=== PATIENT | female | born 1990 | race Two or more races ===

== ENCOUNTER 2025-03-22 07:38 | Outpatient (CLI) | payer OTHER ==
[2025-03-22 08:07] LABS: Hematocrit 39.9 % (36.0-46.0); Hemoglobin 13.6 g/dL (12.2-16.2); Mean Corpuscular Hemoglobin 31.9 pg (28.0-32.0); Mean Corpuscular Volume 93.6 fL (80.0-100.0); Nucleated Red Blood Cells % 0.1 %
[2025-03-22 08:35] LABS: Alanine Aminotransferase 17 U/L (7-40); Alkaline Phosphatase 102 U/L (46-116); Anion Gap 9 (5-15); Calcium 8.9 mg/dL (8.7-10.4); Carbon Dioxide 26 mmol/L (20-31); Chloride 106 mmol/L (98-107); Glucose 90 mg/dL (74-106); Potassium 4.4 mmol/L (3.5-5.1); Sodium 141 mmol/L (136-145); Triglycerides 134 mg/dL (< 150)
[2025-03-22 08:36] LABS: Albumin 4.3 g/dL (3.2-4.8); BUN/Creatinine Ratio 9.5 (10.0-20.0); Bilirubin, Total 0.4 mg/dL (0.2-1.0); Blood Urea Nitrogen 7 mg/dL (9-23); Cholesterol 240 mg/dL (< 200); HDL Cholesterol 43 mg/dL (40-59); Total Protein 7.3 g/dL (5.7-8.2)
[2025-03-22 08:47] LABS: Ferritin 78.0 ng/mL (10-291)
[2025-03-22 08:50] LABS: Iron 68.0 ug/dL (50-170)
[2025-03-22 08:53] LABS: Total Iron Binding Capacity 282.0 ug/dL (250-425)
[2025-03-22 12:06] LABS: Hepatitis A Total Antibody Positive (Negative); Hepatitis B Surface Antigen Negative (Negative); Hepatitis C Antibody Negative (Negative)
== END 2025-03-25 17:00 | disposition home or self-care (01) ==
LOC: LAB 07:38
PROVIDERS: ATTEND Licensed Practical Nurse
DX: E55.9 Vitamin D deficiency, unspecified (principal); Z13.29 Encounter for screening for other suspected endocrine disorder; Z13.1 Encounter for screening for diabetes mellitus; Z00.01 Encounter for general adult medical examination with abnormal findings
CPT/HCPCS: 36415; 80053; 80061; 82043; 82306; 82607; 82728; 82746; 83036; 83540; 83550; 84443; 85025; 86704; 86706; 86708; 86803; 87340